=== PATIENT | female | born 1975 | race African-American/Black ===

== ENCOUNTER 2022-05-21 17:05 | Emergency (ER) | payer MEDICAID ==
[~2022-05-21] VITALS: Ht 160 cm; Wt 83.5 kg
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
[2022-05-21] MEDS ORDERED: LIDOCAINE 5% (PATCH) 1 EA PATCH TP SCH (18:00)
[2022-05-21] MEDS ORDERED: KETOROLAC TROMETHAMINE INJ 60 MG/2 ML VIAL IM ONE (18:00)
[2022-05-21] MEDS ORDERED: CYCLOBENZAPRINE 10 MG TABLET PO ONE (18:00)
--- NOTE | 2022-05-21 18:00 | NUR ---
URINE SAMPLE COLLECTED SENT TO LAB
[2022-05-21] MEDS ORDERED: CYCLOBENZAPRINE 10 MG TABLET ONE (18:21)
[2022-05-21] MEDS ORDERED: LIDOCAINE 5% (PATCH) 1 EA PATCH TP ONE (18:21)
[2022-05-21] MEDS ORDERED: KETOROLAC TROMETHAMINE INJ 30 MG/ML VIAL ONE (18:54)
[2022-05-21] MEDS ORDERED: LIDO30AD10 TP (19:09)
[2022-05-21] MEDS ORDERED: CYCL10TA9 PO (19:09)
--- NOTE | 2022-05-21 19:11 | NUR ---
Patient discharged to home in stable condition. Written and verbal after care instructions given. Patient verbalizes understanding of instruction.
[2022-05-21 19:12] VITALS: BP 133/83
== END 2022-05-21 19:13 | disposition home or self-care (01) ==
LOC: ER 17:09
DX: M54.2 Cervicalgia (principal); J45.909 Unspecified asthma, uncomplicated; Z88.0 Allergy status to penicillin
CPT/HCPCS: 99283; 96372; 84703; J1885

== ENCOUNTER 2023-08-20 01:03 | Emergency (ER) | payer MEDICAID ==
[~2023-08-20] VITALS: Ht 160 cm; Wt 78.5 kg
[~2023-08-20 01:03] MED LIST: CYCL10TA9 PO; LIDO30AD10 TP
[2023-08-20 01:11] VITALS: TEMP 98.4
[2023-08-20 02:22] LABS: PREGNANCY TEST URINE QUAL NEGATIVE (NEGATIVE)
[2023-08-20 04:39] VITALS: BP 119/77; O2SAT 98
== END 2023-08-20 04:45 | disposition home or self-care (01) ==
LOC: ER 01:06
DX: M54.50 Low back pain, unspecified (principal); R20.2 Paresthesia of skin; J45.909 Unspecified asthma, uncomplicated; Z88.0 Allergy status to penicillin
CPT/HCPCS: 84703-TC